=== PATIENT | female | born 1975 | race Caucasian/White ===

== ENCOUNTER 2021-11-25 18:06 | Emergency (ER) | payer OTHER ==
[2021-11-25] MEDS ORDERED: Alum Hydrox/Mag Hydrox/Simeth 15 ML, Lidocaine 2% 15 ML PO ONE ×2 (18:24)
[2021-11-25] MEDS ORDERED: Sucralfate 1 GM Tab PO ONE (18:33)
[2021-11-25 18:54] LABS: ESTIMATED GFR 80 mL/min (>60)
[2021-11-25 18:55] LABS: TROPONIN I HIGH SENSITIVITY < 4.0 pg/mL (<=60.3)
== END 2021-11-25 19:40 | disposition home or self-care (01) ==
LOC: JP.ED 18:06
DX: K21.00 Gastro-esophageal reflux disease with esophagitis, without bleeding (principal); K58.9 Irritable bowel syndrome, unspecified; Z79.899 Other long term (current) drug therapy; Z87.891 Personal history of nicotine dependence
CPT/HCPCS: 36415; 80053; 84484; 85025; 85610; 93005; 99284; A9270; 93010; 99282